=== PATIENT | female | born 1965 | race Caucasian/White ===

== ENCOUNTER 2021-01-05 09:28 | Outpatient (CLI) | payer MEDICARE, SELFPAY ==
--- NOTE | ~2021-01-05 | MM_ITS ---
EXAMINATION: MM diagnostic jose alejandro BI w ed HISTORY: Follow-up breast nodules TECHNIQUE: Additional 3-D tomosynthesis images of the breasts were performed and synthetic 2-D images were generated. CAD analysis was submitted and interpreted. COMPARISON: Comparison to multiple prior studies sequentially, with oldest reviewed study dated 03/04. BREAST PARENCHYMAL COMPOSITION: Breast composed of scattered areas of fibroglandular density FINDINGS: The breasts are stable. No new masses, calcifications or architectural distortion in either breast to suggest malignancy. Stable benign-appearing right breast nodules. IMPRESSION: 1. No mammographic evidence for malignancy in either breast. 2. Routine yearly screening mammogram and regular clinical breast examination are recommended. BI-RADS Category 2: Benign finding(s). Reviewed, dictated and finalized at location A. IMPRESSION: 1. No mammographic evidence for malignancy in either breast. 2. Routine yearly screening mammogram and regular clinical breast examination a re recommended. BI-RADS Category 2: Benign finding(s).
== END 2021-01-05 09:29 | disposition home or self-care (01) ==
PROVIDERS: PCP Physician Assistant; Visit Provider Obstetrics & Gynecology
DX: R92.8 Other abnormal and inconclusive findings on diagnostic imaging of breast (principal)
CPT/HCPCS: 77062; 77066; G0279

== ENCOUNTER 2022-03-15 08:57 | Outpatient (CLI) | payer MEDICARE, MEDICAID, SELFPAY ==
--- NOTE | ~2022-03-15 | MM_ITS ---
EXAMINATION: MM screening [facility] BI w ed HISTORY: Screening TECHNIQUE: Craniocaudal and mediolateral oblique 3-D tomosynthesis images were obtained and synthetic 2-D images were generated. CAD analysis was submitted and interpreted. COMPARISON: Comparison to multiple prior studies sequentially, with oldest reviewed study dated 03/04. BREAST PARENCHYMAL COMPOSITION: There are scattered areas of fibroglandular density. FINDINGS: There is no evidence of suspicious mass, calcification, or architectural distortion to sugg est malignancy in either breast. There has been no suspicious interval change. IMPRESSION: 1. No mammographic evidence of malignancy. 2. Recommend routine screening mammography in one year. BI-RADS Category 1: Negative Reviewed, dictated and finalized at location A.
== END 2022-03-15 08:58 | disposition home or self-care (01) ==
PROVIDERS: PCP Physician Assistant; Visit Provider Obstetrics & Gynecology
DX: Z12.31 Encounter for screening mammogram for malignant neoplasm of breast (principal)
CPT/HCPCS: 77063; 77067

== ENCOUNTER 2022-03-28 00:15 | Day surgery (SDC) | payer MEDICARE, MEDICAID, SELFPAY ==
[2022-03-13 15:25] VITALS: BMI 30.8
[2022-03-28 07:18] VITALS: BP 138/73; PULSE 84; RESP 18; TEMP 36.3; O2SAT 98; BMI 30.5
--- NOTE | 2022-03-28 07:27 | PM.HPGS ---
History of Present Illness History of Present Illness Consent: Risks, benefits, and alternatives have been discussed and questions answered. Patient agrees to proceed with procedure. Chief complaint: hx colon polyps Narrative: Sierra Calvillo is a 56 year old female Presents for screening colonoscopy. Patient states that her current weight appetite and bowel movements are normal. Patient denies abdominal pain. She has had no bleeding. Patient's previous colonoscopy 1999 showed colon polyps. Patient previously followed by Dr. Andre Markham. Review of Systems Review of Systems: review of systems noncontributory. [facility] Family History Family History Father Acute myocardial infarction, Onset Age: 61 Patient's father is Heart disease Mother Patient's mother is Asthma Cancer Grandparent Asthma Cancer Diabetes mellitus Heart disease Social History Social History Smoking packs per day: 0.25 Smoking cigarettes per day: 5.0 Years smoked: 5 Smoking pack-years: 1.25 Smoking status: Former smoker Tobacco type: cigarettes Second hand tobacco smoke exposure: No Smoking end date: 06/04/83 Alcohol intake: never Substance use: never Substance use type: does not use Living arrangements: with family Gender identity (if verbalized by the patient): Female Spiritual care concerns: No Meds Home Medications and Allergies Home Medications Medication Instructions Recorded Confirmed Type aspirin 81 mg tablet,delayed 81 mg PO DAILY 04/09/19 03/28/22 History release (Adult Aspirin Regimen) citalopram 40 mg tablet (Celexa) 40 mg PO DAILY 04/09/19 03/28/22 History metoprolol succinate 25 mg 25 mg PO DAILY 04/09/19 03/28/22 History tablet,extended release 24 hr cholecalciferol (vitamin D3) 50 50 mcg PO DAILY 06/24/20 03/28/22 History mcg (2,000 unit) capsule omeprazole 20 mg tablet,delayed 20 mg PO DAILY #90 tabs 09/15/20 03/28/22 Rx release atorvastatin 10 mg tablet 10 mg PO DAILY #90 tabs 07/29/21 03/28/22 Rx alprazolam 0.25 mg tablet 0.25 mg PO BID #60 tabs 01/24/22 03/28/22 Rx sodium,potassium,mag sulfates 17.5 See Rx Instructions PO .COMPLEX 02/01/22 03/28/22 Rx gram-3.13 gram-1.6 gram oral soln #354 mL (Suprep Bowel Prep Kit) Allergies Allergy/AdvReac Type Severity Reaction Status Date / Time amoxicillin Allergy Unknown Diarrhea Verified 03/28/22 07:22 metronidazole Allergy Unknown Nausea Verified 03/28/22 07:22 clavulanic acid AdvReac Unknown GOT C-DIFF Verified 03/28/22 07:22 Exam Narrative: Physical exam reveals patient to be alert. Vital signs stable. HEENT exam is unremarkable. Patient is anicteric. Lungs are clear to auscultation and percussion. Heart is without murmur or extra sounds. Abdomen bowel sounds are present soft nontender with no organomegaly. Digital external rectal exam is normal. Assessment and Plan Assessment and plan (1) Encounter for screening colonoscopy: Code(s): Z12.11 - Encounter for screening for malignant neoplasm of colon Status: Acute Assessment and Plan: Patient presents for screening colonoscopy. Has a prior history of colon polyps. Further recommendations will be given after endoscopy. (2) History of colon polyps: Code(s): Z86.010 - Personal history of colonic polyps Status: Acute
[2022-03-28] MEDS: LACTATED RINGERS 1,000 ML 150 ML IV CONT (07:40)
--- NOTE | 2022-03-28 07:57 | WPDANESEPPF ---
Anes - Initial Pre Proc Eval Procedure: Operation Date: 03/28/22 08:30 Proposed Procedures p Screening Colonoscopy - Andre Osorio MD Date/Time: 03/28/22 07:57 Surgeon: Andre Osorio MD Pre Op Diagnosis: hx colon polyps Patient Data Age: 56 Gender: F Height: 1.65 m Weight: 83.3 kg Last Vital Signs Temp 36.3 C L 03/28/22 07:18 Pulse 84 03/28/22 07:18 Resp 18 03/28/22 07:18 BP 138/73 03/28/22 07:18 Pulse Ox 98 03/28/22 07:18 O2 Del Method Room Air 03/28/22 07:18 Allergies Allergy/AdvReac Type Severity Reaction Status Date / Time amoxicillin Allergy Unknown Diarrhea Verified 03/28/22 07:22 metronidazole Allergy Unknown Nausea Verified 03/28/22 07:22 clavulanic acid AdvReac Unknown GOT C-DIFF Verified 03/28/22 07:22 Home Medications Medication Instructions Recorded Confirmed Type aspirin 81 mg tablet,delayed 81 mg PO DAILY 04/09/19 03/28/22 History release (Adult Aspirin Regimen) citalopram 40 mg tablet (Celexa) 40 mg PO DAILY 04/09/19 03/28/22 History metoprolol succinate 25 mg 25 mg PO DAILY 04/09/19 03/28/22 History tablet,extended release 24 hr cholecalciferol (vitamin D3) 50 50 mcg PO DAILY 06/24/20 03/28/22 History mcg (2,000 unit) capsule omeprazole 20 mg tablet,delayed 20 mg PO DAILY #90 tabs 09/15/20 03/28/22 Rx release atorvastatin 10 mg tablet 10 mg PO DAILY #90 tabs 07/29/21 03/28/22 Rx alprazolam 0.25 mg tablet 0.25 mg PO BID #60 tabs 01/24/22 03/28/22 Rx sodium,potassium,mag sulfates 17.5 See Rx Instructions PO .COMPLEX 02/01/22 03/28/22 Rx gram-3.13 gram-1.6 gram oral soln #354 mL (Suprep Bowel Prep Kit) Patient hx anesthesia problems: none Family hx anesthesia problems: none Results Review: All pre-operative results and documents have been reviewed as part of the pre-operative evaluation. [facility] Past Medical History Medical History (Updated 03/28/22 @ 07:57 by Mcaiej Wilson MD) Hyperlipidemia Obesity Surgical History Surgical History (Updated 03/28/22 @ 07:59 by Maciej Wilson MD) History of surgery on lower extremity open fracture right LE requiring vascular repair and skin graft Family History Family History Father Acute myocardial infarction, Onset Age: 61 Patient's father is Heart disease Mother Patient's mother is Asthma Cancer Grandparent Asthma Cancer Diabetes mellitus Heart disease Social History Social History Smoking packs per day: 0.25 Smoking cigarettes per day: 5.0 Years smoked: 5 Smoking pack-years: 1.25 Smoking status: Former smoker Tobacco type: cigarettes Second hand tobacco smoke exposure: No Smoking end date: 06/04/83 Alcohol intake: never Substance use: never Substance use type: does not use Living arrangements: with family Gender identity (if verbalized by the patient): Female Spiritual care concerns: No Anes - Eval Final PreProcedure Day of Procedure 03/28/22 07:57 Patient weight: obese Heart: regular rate and rhythm Lungs: clear to auscultation Airway: Mallampati scale class II Last oral intake: >/= 8 hours ASA classification: II Emergent: no Anesthetic plan: proceed Anesthesia type and monitoring: general GIVS and standard monitoring Results Review: All pre-operative results and documents have been reviewed as part of the pre-operative evaluation. Informed Consent: The patient's anesthetic plan and its attendant risks and benefits were discussed with the patient/family/POA. Questions were solicited and answers provided to the satisfaction of the patient/family/POA.
[2022-03-28 08:47] VITALS: BP 97/63; PULSE 77; RESP 17; O2SAT 94
[2022-03-28 08:57] VITALS: BP 102/69; PULSE 78; RESP 18; O2SAT 97
[2022-03-28 09:07] VITALS: BP 104/69; PULSE 69; RESP 15; O2SAT 97
== END 2022-03-28 09:10 | disposition home or self-care (01) ==
PROVIDERS: PCP Physician Assistant; Visit Provider Internal Medicine Gastroenterology
PROC: 0DJD8ZZ Inspection of Lower Intestinal Tract, Via Natural or Artificial Opening Endoscopic (ICD-10-PCS; CPT 45378; principal; 2022-03-28 08:30)
DX: Z12.11 Encounter for screening for malignant neoplasm of colon (principal); K64.8 Other hemorrhoids; Z86.010 Personal history of colon polyps; Z79.82 Long term (current) use of aspirin; E78.5 Hyperlipidemia, unspecified; E66.9 Obesity, unspecified; Z68.30 Body mass index [BMI] 30.0-30.9, adult; Z87.891 Personal history of nicotine dependence
CPT/HCPCS: G0105; J2001; J2704; J7120

== ENCOUNTER 2022-12-04 13:38 | Outpatient (CLI) | payer MEDICARE, MEDICAID, SELFPAY ==
--- NOTE | ~2022-12-04 | US_ITS ---
EXAMINATION: US soft tissue LE RT DATE: 12/04/2022 14:13 INDICATION: Palpable lump region of the right Achilles tendon TECHNIQUE: Multiple grayscale and Doppler ultrasound images of the region of concern at the posterior right ankle overlying the right Achilles tendon were obtained. COMPARISON: None FINDINGS: At the region of the palpable abnormality is a 2-3 mm hypoechoic lesion in the subcutis fat overlying the superficial margin of the normal-appearing underlying Achilles tendon. On the transverse cine im ages the lesion appears contiguous with a tiny structure extending within the lesion in a linear fash ion evident primarily by some refraction artifact suggesting either a vessel which would favor a smal l varix for the hypoechoic lesion or nerve root the lesion potentially representing a schwannoma or p eripheral nerve sheath tumor. IMPRESSION: 1. Nonspecific 2-3 mm hypoechoic lesion in the subcutaneous fat at the region of concern which could represent either a tiny venous varix or solid neoplasm such as schwannoma or neurofibroma. Reviewed, dictated and finalized at location B. IMPRESSION: 1. Nonspecific 2-3 mm hypoechoic lesion in the subcutaneous fat at the region o f concern which could represent either a tiny venous varix or solid neoplasm swift ch as schwannoma or neurofibroma.
== END 2022-12-04 13:39 | disposition home or self-care (01) ==
PROVIDERS: PCP Physician Assistant; Visit Provider Physician Assistant
DX: R22.41 Localized swelling, mass and lump, right lower limb (principal)
CPT/HCPCS: 76882

== ENCOUNTER 2023-05-14 01:59 | Day surgery (SDC) | payer MEDICARE, MEDICAID, SELFPAY ==
[2023-05-09 14:00] VITALS: BMI 32.9
--- NOTE | 2023-05-09 14:49 | PC.NURSE ---
Report to the Outpatient Waiting Room, entrance under the green pavilion located off [facility], at 0745 on 05-14-23. Planned Procedure Time: 0945. Time changes happen often and if your time is changed the preop area will call you the afternoon before. - You and your visitor will be asked to self-screen and do not enter if you have any COVID symptoms. - A mask is optional within the hospital at this time. Patients may have clear liquids (water, carbonated beverages, clear teas, apple juice) until 3 hours prior to surgery with a maximum of 20 ounces. 0645 - No food from midnight until time of surgery - Infants may have breast milk until 4 hours before surgery, formula 6 hours prior to surgery. - Children will be allowed to drink immediately following surgery. If applicable, please bring a bottle or sippy cup to assist with drinking. Juice, water, soda, and popsicles are readily available. For infants on formula, please bring formula the day of surgery. Pacifiers are allowed. Take the following medications with a SIP of water the morning of surgery: None DO NOT STOP ANY OF YOUR OTHER PRESCRIPTION MEDICATIONS PRIOR TO SURGERY ?EXCEPT THE FOLLOWING Medications to discontinue per physician: aspirin Date to take last dose: Per Dr. Wing Please no make-up, nail french, hairspray, perfume, deodorant, or body powder the day of surgery. No jewelry (including any body piercings) or valuables the day of surgery, leave them at home. Please take a shower or bath the night before, or the morning of, surgery with an antibacterial soap. Wear comfortable, loose fitting clothing. Children are encouraged to wear pajamas. - Jewelry must be removed prior to entering the operating room. Rings and piercings that are not removed may be cut off. - The hospital will not accept responsibility for valuables. - Please leave all valuables, including medications, at home the day of surgery. If you are going home after surgery, a licensed wheelchair driver must drive you home. - NO public transportation without another adult if you receive anesthesia. - We recommend that an adult stay with you for 24 hours following discharge. - We also recommend that you do not drive, make important decision, drink alcoholic beverages, or take any drugs that were not prescribed by your health care provider for at least 24 hours after your discharge time. For Pediatric surgeries, we recommend two adults accompany the child home. Follow any additional instructions given to you from your surgeon. If you or anyone in your household have experienced Covid symptoms in the past week, please notify your surgeon or the nurse liaison at the phone number below for possible testing. Telephone instructions given to Sierra Calvillo and asked if any additional questions and then verbalized understanding. Patient advised to call surgeon office or pre surgery nurse liaison [phone] if any additional questions.
--- NOTE | 2023-05-13 20:05 | PM.IMHP ---
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 Pap 12/2020 was NILM/HPV +. Pap 01/2022 was NILM/HPV + (18 positive). Colpo 03/2022 was HPV affect on biopsy. Repeat pap 03/2023 was NILM/HPV + (18). Colpo 04/2023 was ABRAHAM 1. She has a h/o ablation and denies any PMB. She is not sexually active. Review of Systems Review of Systems: All systems reviewed & are unremarkable except as noted in HPI and below (HPI) Constitutional: Constitutional: Denies chills, Denies fever(s) and Denies headache(s) Eyes: Eyes: Denies change in vision ENT: Denies dizziness and Denies headache(s) Cardiovascular: Cardiovascular: Denies chest pain and Denies rapid heart rate Respiratory: Respiratory: Denies cough Genitourinary: Genitourinary: Denies abnormal vaginal bleeding Neurologic: Denies dizziness and Denies headache(s) [facility] Past Medical History Medical History Abnormal Papanicolaou smear of cervix with positive human papilloma virus (HPV) test History of colon polyps Hyperlipidemia Obesity Surgical History Surgical History History of surgery on lower extremity open fracture right LE requiring vascular repair and skin graft Family History Family History (Updated 03/12/23 @ 14:48 by Jamila Veras MA) Father Acute myocardial infarction, Onset Age: 61 Patient's father is Heart disease Mother Patient's mother is Asthma Cancer Grandparent Asthma Cancer Diabetes mellitus Heart disease Other Anal cancer Social History Social History Smoking packs per day: 0.25 Smoking cigarettes per day: 5.0 Years smoked: 5 Smoking pack-years: 1.25 Smoking status: Never smoker Tobacco type: cigarettes Second hand tobacco smoke exposure: Yes (lives in a duplex and neighbor smokes) Smoking end date: 06/04/83 Alcohol intake: never Substance use: never Substance use type: does not use Lack of Transportation: No Lack of Food: Never True Current Housing: I Have Housing Concerned About Future Housing: No Difficulty Paying Gas/Electric Bills: No Difficulty Paying for Meds: No Currently Unemployed: No Education: High School Diploma/GED Difficulty w/ Childcare or Family Care: No Living arrangements: alone Occupation/Education: occupation Gender identity (if verbalized by the patient): Female Spiritual care concerns: No Meds Home Medications and Allergies Home Medications Medication Instructions Recorded Confirmed Type aspirin 81 mg tablet,delayed 81 mg PO DAILY 04/09/19 05/09/23 History release (Adult Aspirin Regimen) citalopram 40 mg tablet (Celexa) 40 mg PO DAILY 04/09/19 05/09/23 History metoprolol succinate 25 mg 25 mg PO DAILY 04/09/19 05/09/23 History tablet,extended release 24 hr omeprazole 20 mg tablet,delayed 20 mg PO DAILY #90 tabs 09/15/20 05/09/23 Rx release atorvastatin 10 mg tablet 10 mg PO DAILY #90 tabs 01/15/23 05/09/23 Rx alprazolam 0.25 mg tablet 0.25 mg PO HS 05/09/23 05/09/23 History Allergies Allergy/AdvReac Type Severity Reaction Status Date / Time amoxicillin AdvReac Mild Diarrhea Verified 05/09/23 13:51 metronidazole AdvReac Mild Nausea Verified 05/09/23 13:51 clavulanic acid AdvReac Unknown GOT C-DIFF Verified 05/09/23 13:51 Exam Const: General: cooperative, healthy appearing, comfortable and no acute distress Orientation/consciousness: patient oriented x3 Resp: Effort & Inspection: normal respiratory effort Auscultation: clear to auscultation bilaterally Cardio: Rate: regular rate GI: Inspection: normal to inspection and incision (5 LSC incisions ) GI Palp: Yes abdominal tenderne
[2023-05-14] MEDS: ACETAMINOPHEN 500 MG TABLET 1000 MG PO (08:20)
[2023-05-14] MEDS: LACTATED RINGERS 1,000 ML 30 ML IV CONT (08:20)
[2023-05-14 08:30] VITALS: BP 124/67; PULSE 85; RESP 16; TEMP 36.6; O2SAT 99; BMI 32.5
--- NOTE | 2023-05-14 08:59 | WPDHPUPDATE1 ---
History and Physical Update Update Date/Time: 05/14/23 08:59 History and Physical has been reviewed, including an updated exam of the patient. There are NO changes in the patient's condition. Risks, benefits, and alternatives have been discussed and questions answered. Patient agrees to proceed with LEEP, top hat, ECC.
--- NOTE | 2023-05-14 09:51 | WPDANESEPPF ---
Anes - Initial Pre Proc Eval Procedure: Operation Date: 05/14/23 09:45 Proposed Procedures p Loop Electrical Excision Procedure - Ade Wing MD Date/Time: 05/14/23 09:51 Surgeon: Ade Wing MD Pre Op Diagnosis: cervical dysplasia Patient Data Age: 58 Gender: F Height: 1.65 m Weight: 88.7 kg Last Vital Signs Temp 97.8 F 05/14/23 08:30 Pulse 85 05/14/23 08:30 Resp 16 05/14/23 08:30 BP 124/67 05/14/23 08:30 Pulse Ox 99 05/14/23 08:30 O2 Del Method Room Air 05/14/23 08:30 Allergies Allergy/AdvReac Type Severity Reaction Status Date / Time amoxicillin AdvReac Mild Diarrhea Verified 05/14/23 08:29 metronidazole AdvReac Mild Nausea Verified 05/14/23 08:29 clavulanic acid AdvReac Unknown GOT C-DIFF Verified 05/14/23 08:29 Home Medications Medication Instructions Recorded Confirmed Type aspirin 81 mg tablet,delayed 81 mg PO DAILY 04/09/19 05/14/23 History release (Adult Aspirin Regimen) citalopram 40 mg tablet (Celexa) 40 mg PO DAILY 04/09/19 05/14/23 History metoprolol succinate 25 mg 25 mg PO DAILY 04/09/19 05/14/23 History tablet,extended release 24 hr omeprazole 20 mg tablet,delayed 20 mg PO DAILY #90 tabs 09/15/20 05/14/23 Rx release atorvastatin 10 mg tablet 10 mg PO DAILY #90 tabs 01/15/23 05/14/23 Rx alprazolam 0.25 mg tablet 0.25 mg PO HS 05/09/23 05/14/23 History acetaminophen 500 mg tablet 1,000 mg PO TID #60 tabs 05/14/23 Rx ibuprofen 800 mg tablet 800 mg PO TID #30 tabs 05/14/23 Rx Patient hx anesthesia problems: post op nausea/vomiting Family hx anesthesia problems: none Results Review: All pre-operative results and documents have been reviewed as part of the pre-operative evaluation. [facility] Past Medical History Medical History Abnormal Papanicolaou smear of cervix with positive human papilloma virus (HPV) test History of colon polyps Hyperlipidemia Obesity Surgical History Surgical History History of surgery on lower extremity open fracture right LE requiring vascular repair and skin graft Family History Family History (Updated 03/12/23 @ 14:48 by Jamila Veras MA) Father Acute myocardial infarction, Onset Age: 61 Patient's father is Heart disease Mother Patient's mother is Asthma Cancer Grandparent Asthma Cancer Diabetes mellitus Heart disease Other Anal cancer Social History Social History (Reviewed 01/29/23 @ 08:20 by Maddi Celeste [facility]) Smoking packs per day: 0.25 Smoking cigarettes per day: 5.0 Years smoked: 5 Smoking pack-years: 1.25 Smoking status: Never smoker Tobacco type: cigarettes Second hand tobacco smoke exposure: Yes (lives in a duplex and neighbor smokes) Smoking end date: 06/04/83 Alcohol intake: never Substance use: never Substance use type: does not use Lack of Transportation: No Lack of Food: Never True Current Housing: I Have Housing Concerned About Future Housing: No Difficulty Paying Gas/Electric Bills: No Difficulty Paying for Meds: No Currently Unemployed: No Education: High School Diploma/GED Difficulty w/ Childcare or Family Care: No Living arrangements: alone Occupation/Education: occupation Gender identity (if verbalized by the patient): Female Spiritual care concerns: No Anes - Eval Final PreProcedure Day of Procedure 05/14/23 09:51 Patient weight: obese Heart: regular rate and rhythm Lungs: clear to auscultation Airway: Mallampati scale class II Neurological: alert and oriented Last oral intake: >/= 8 hours ASA classification: III Emergent: no Anesthetic plan: proceed Anesthesia type and monitoring: general GIVS and standard monitoring Results Review: All pre-operative results and documents have been reviewed as part of the pre-operative evaluation. Informed Consent:
[2023-05-14] MEDS: BUPIVACAINE/EPINEPHRINE 0.5% 50 ML VIAL 10 ML INFILTRATE (10:05)
--- NOTE | 2023-05-14 10:38 | W.PM.PROC2 ---
Procedure Note - Detailed Date of Procedure 05/14/23 Pre-op Diagnosis cervical dysplasia, high risk HPV 18 Post-op Diagnosis Same Procedure Performed LEEP, top hat, ECC Surgeon Ade Wing MD Anesthesia MAC and Local (10cc of 0.5% marcaine w/ epi) Findings No lugols uptake between 12-1 o'clock. Good hemostasis at end of case. Description of Procedure Sierra was taken to the operating room where she was placed under MAC sedation without complications. She was then prepped and draped in the normal fashion in the dorsal lithotomy position with her legs in low Danie stirrups. A time-out was performed and no preoperative antibiotics were indicated. A coated speculum attached to suction was then placed within the vagina, where the cervix was easily identified. The cervix was then injected with 0.5% Marcaine with epinephrine (10cc was used). Lugol?s solution was then applied to the cervix. No uptake was noted at 12-1o'clock. The LEEP was then obtained in a single swipe from the patient?s left to right. The LEEP was removed and a silk stitch was placed at 12:00 p.m. to orient the tissue for pathology. A top-hat was then obtained in the same manner. A silk stitch was then placed at 12:00 p.m. An ECC was then collected. The LEEP bed was then cauterized using the roller ball. Good hemostasis was noted. Sponge, lap, instrument, and needle counts were correct at the end of the procedure. The patient was awoken from anesthesia and taken to recovery in a stable condition with plans of same-day discharge home. Estimated Blood Loss 15 IV Fluids 700 Packing No Pathology Yes (LEEP stitch @ 12, top hat stitch at 12, ECC) Complications No immediate complications Condition Stable Disposition Same day [facility] Billing Surgery - Charge Forward: Surgery Billing
[2023-05-14 10:44] VITALS: BP 100/61; PULSE 79; RESP 14; O2SAT 97
[2023-05-14 11:14] VITALS: BP 100/61; PULSE 72; RESP 14; O2SAT 92
[2023-05-14 11:44] VITALS: BP 103/62; PULSE 68; RESP 14
--- NOTE | 2023-05-14 11:47 | SUR.PHASEII ---
DRESSED, WAITING FOR HER RIDE.
== END 2023-05-14 12:07 | disposition home or self-care (01) ==
PROVIDERS: PCP Physician Assistant; Visit Provider Obstetrics & Gynecology
PROC: 0UBC7ZZ Excision of Cervix, Via Natural or Artificial Opening (ICD-10-PCS; CPT 57522; principal; 2023-05-14 09:45)
DX: R87.612 Low grade squamous intraepithelial lesion on cytologic smear of cervix (LGSIL) (principal); N88.8 Other specified noninflammatory disorders of cervix uteri; E78.5 Hyperlipidemia, unspecified; E66.9 Obesity, unspecified; Z68.32 Body mass index [BMI] 32.0-32.9, adult; Z79.82 Long term (current) use of aspirin; Z87.891 Personal history of nicotine dependence; Z86.010 Personal history of colon polyps; Z82.49 Family history of ischemic heart disease and other diseases of the circulatory system; Z80.0 Family history of malignant neoplasm of digestive organs
CPT/HCPCS: 57522; 88305; 88307; A9270; J2405; J2704; J3010; J7120

== ENCOUNTER 2023-05-16 10:10 | Outpatient (CLI) | payer MEDICARE, MEDICAID, SELFPAY ==
--- NOTE | ~2023-05-16 | XR_ITS ---
EXAMINATION: XR finger 2nd LT min 2V INDICATION: Left second finger pain TECHNIQUE: Three views of the left second finger are obtained. COMPARISON: None available FINDINGS: There is soft tissue swelling of the second finger. 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 No fracture is identified. No radiopaque foreign body is seen. IMPRESSION: 1. Soft tissue swelling of the left second finger without radiopaque foreign body identified. Reviewed, dictated and finalized at location B. [facility] IMPRESSION: 1. Soft tissue swelling of the left second finger without radiopaque foreign laurie dy identified.
== END 2023-05-16 10:11 | disposition home or self-care (01) ==
PROVIDERS: PCP Physician Assistant; Visit Provider Physician Assistant
DX: M79.5 Residual foreign body in soft tissue (principal); R22.32 Localized swelling, mass and lump, left upper limb
CPT/HCPCS: 73140

== ENCOUNTER → 2023-06-05 14:38 | Outpatient (REF) | payer MEDICARE, SELFPAY | LOC: ANHLAB 14:38 | PROVIDERS: PCP Physician Assistant; Visit Provider Plastic Surgery | DX: L30.8 Other specified dermatitis (principal); R22.32 Localized swelling, mass and lump, left upper limb | CPT/HCPCS: 88305 ==

== ENCOUNTER 2023-08-16 14:26 | Outpatient (CLI) | payer MEDICARE, SELFPAY ==
--- NOTE | ~2023-08-16 | MM_ITS ---
EXAMINATION: MM screening jose alejandro BI w ed HISTORY: Screening mammogram TECHNIQUE: Craniocaudal and mediolateral oblique 3-D tomosynthesis images were obtained and synthetic 2-D images were generated. CAD analysis was submitted and interpreted. COMPARISON: 03/15/2022 bilateral screening mammogram 01/05/2021 bilateral diagnostic mammogram BREAST PARENCHYMAL COMPOSITION: There are scattered areas of fibroglandular density. FINDINGS: Biopsy marker on the left; history of prior benign left breast biopsy. There is no evidence of suspicious mass, calcification, or architectural distortion to suggest malignancy in either breas t. There has been no suspicious interval change. IMPRESSION: 1. No mammographic evidence of malignancy. 2. Recommend routine screening mammography in one year. BI-RADS Category 1: Negative Reviewed, dictated and finalized at location A.
== END 2023-08-16 14:27 | disposition home or self-care (01) ==
PROVIDERS: PCP Physician Assistant; Visit Provider Obstetrics & Gynecology
DX: Z12.31 Encounter for screening mammogram for malignant neoplasm of breast (principal)
CPT/HCPCS: 77063; 77067

== ENCOUNTER 2023-12-19 13:09 | Outpatient (CLI) | payer MEDICARE, SELFPAY ==
--- NOTE | ~2023-12-19 | US_ITS ---
EXAMINATION: US soft tissue abdomen DATE: 12/19/2023 13:29 INDICATION: Palpable lump along the abdominal wall the left upper quadrant TECHNIQUE: Multiple grayscale and Doppler ultrasound images of the region of extraluminal left quadra nt anterior abdominal wall were obtained. COMPARISON: None FINDINGS: There is a 2.3 x 2.3 x 0.9 cm ovoid mass in the relatively superficial subcutaneous fat with similar echogenicity and echotexture to the surrounding fat. No other abnormal masses or fluid collections id entified. IMPRESSION: 1. Nonspecific 2.3 x 2.3 x 0.9 cm subcutis mass at the region of concern with appearance most consist ent with and statistically most likely to represent a lipoma. Reviewed, dictated and finalized at location A. IMPRESSION: 1. Nonspecific 2.3 x 2.3 x 0.9 cm subcutis mass at the region of concern with a ppearance most consistent with and statistically most likely to represent a lip yomaira.
== END 2023-12-19 13:10 ==
LOC: MICIMG 13:10
PROVIDERS: PCP Internal Medicine; Visit Provider Internal Medicine
DX: R22.2 Localized swelling, mass and lump, trunk (principal)
CPT/HCPCS: 76705

== ENCOUNTER 2024-12-17 11:49 | Outpatient (CLI) | payer MEDICARE, SELFPAY ==
--- NOTE | ~2024-12-17 | MM_ITS ---
EXAMINATION: MM screening jose alejandro BI w ed HISTORY: Screening TECHNIQUE: Craniocaudal and mediolateral oblique 3-D tomosynthesis images were obtained and synthetic 2-D images were generated. CAD analysis was submitted and interpreted. COMPARISON: Comparison to multiple prior studies sequentially, with oldest reviewed study dated 06/2017. BREAST PARENCHYMAL COMPOSITION: Not dense: There are scattered areas of fibroglandular density. FINDINGS: There is no evidence of suspicious mass, calcification, or architectural distortion to sugg est malignancy in either breast. There has been no suspicious interval change. IMPRESSION: 1. No mammographic evidence of malignancy. 2. Recommend routine screening mammography in one year. BI-RADS Category 1: Negative Reviewed, dictated and finalized at location B.
== END 2024-12-17 11:50 | disposition home or self-care (01) ==
LOC: MICIMG 11:49
PROVIDERS: PCP Internal Medicine; Visit Provider Obstetrics & Gynecology
DX: Z12.31 Encounter for screening mammogram for malignant neoplasm of breast (principal)
CPT/HCPCS: 77063; 77067

== ENCOUNTER 2024-12-30 08:18 | Outpatient (CLI) | payer MEDICARE, SELFPAY ==
--- NOTE | ~2024-12-30 | CT_ITS ---
Non-contrast CT scan of the Abdomen and Pelvis Clinical indication: Abdominal pain Technique: 2.5 mm axial scans were obtained through the abdomen and pelvis without intravenous or or al contrast. Dose reduction technique was used on this scan by utilizing automated exposure control a nd iterative reconstruction technique. The dose-length product (DLP) was 722.39 mGy-cm. Findings: Images through the lung bases reveal no abnormalities. There is no evidence of renal or ureteral calculi. The kidneys and the ureters are nondilated. The liver, spleen, pancreas, gallbladder, and adrenals appear normal. There is no aortic aneurysm. There is no evidence of bowel obstruction. Images through the pelvis were performed. There is no evidence of ascites or lymphadenopathy. Urinary bladder unremarkable. No pelvic mass seen. Impression: No significant abnormality seen. Reviewed, dictated and finalized at [facility]. Impression: No significant abnormality seen.
== END 2024-12-30 08:19 | disposition home or self-care (01) ==
LOC: MICIMG 08:18
PROVIDERS: PCP Internal Medicine; Visit Provider Internal Medicine
DX: R10.9 Unspecified abdominal pain (principal)
CPT/HCPCS: 74176

== ENCOUNTER 2025-01-20 09:05 | Emergency (ER) | payer MEDICARE, SELFPAY ==
--- NOTE | ~2025-01-20 | XR_ITS ---
EXAMINATION: XR foot RT min 3V DATE: 01/20/2025 09:48 INDICATION: Fifth toe injury. TECHNIQUE: 4 images of the right foot were obtained. COMPARISON: None. FINDINGS: Displaced fracture of the distal third of the proximal phalanx of the fifth toe. Bones appear osteopenic. No other fracture identified. Soft tissue swelling about the right fifth toe. IMPRESSION: 1. Displaced fracture of the proximal phalanx of the fifth toe. Reviewed, dictated and finalized at location A.
--- NOTE | ~2025-01-20 | XR_ITS ---
EXAMINATION: XR foot RT 2V DATE: 01/20/2025 10:23 INDICATION: Postreduction fifth toe TECHNIQUE: 2 images of the right foot were obtained. COMPARISON: Right foot x-rays 01/20/2025 FINDINGS: Redemonstration of the fracture of the proximal phalanx of the fifth toe which is now in near-anatomic alignment. IMPRESSION: 1. Redemonstration of the fracture of the proximal phalanx of the right fifth toe which is now in near-anatomic alignment. Reviewed, dictated and finalized at location A. IMPRESSION: 1. Redemonstration of the fracture of the proximal phalanx of the right fifth t oe which is now in near-anatomic alignment.
[2025-01-20 09:13] VITALS: BP 110/77; PULSE 75; RESP 16; TEMP 36.9; O2SAT 98
--- NOTE | 2025-01-20 09:17 | ED_ITS ---
HPI - Extremity Injury (Lower) General Chief Complaint: Extremity Injury, Lower Stated Complaint: Injured Toe Time Seen by Provider: 01/20/25 09:16 Source: patient, RN notes reviewed and old records reviewed Mode of arrival: ambulatory Limitations: no limitations History of Present Illness HPI Narrative: 59-year-old female presents to the [facility] with pain to the right 5th toe. Patient states that she stubbed it. Not in anatomical alignment. Onset (ago): hour(s) Related Data Home Medications ?Medication ?Instructions ?Recorded ?Confirmed ?Last Taken ?Type aspirin 81 mg tablet,delayed 81 mg PO DAILY 04/09/19 1 06/04/23 05/11/23 History release (Adult Aspirin Regimen) citalopram 40 mg tablet (Celexa) 40 mg PO DAILY 04/04/24 05/13/23 History metoprolol succinate 25 mg 25 mg PO DAILY 04/09/1906/2705/13/23 History tablet,extended release 24 hr Allergies Allergy/AdvReac Type Severity Reaction Status Date / Time amoxicillin AdvReac Mild Diarrhea Verified 12/23/24 13:43 metronidazole AdvReac Mild Nausea Verified 12/23/24 13:43 clavulanic acid AdvReac Unknown GOT C-DIFF Verified 12/23/24 13:43 Review of Systems Review of Systems: All systems reviewed & are unremarkable except as noted in HPI and below Constitutional: Constitutional: Reports no additional constitutional complaints ENT: Reports system reviewed and no additional complaints, except as documented Cardiovascular: Cardiovascular: Reports no additional cardiovascular complaints, Denies chest pain and Denies dyspnea Respiratory: Respiratory: Reports no additional respiratory complaints, Denies chest congestion, Denies cough and Denies dyspnea Musculoskeletal: Musculoskeletal: Reports as per HPI Integumentary/Breasts: Skin/Breast: Reports system reviewed and no additional complaints, except as docu [facility] Past Medical History Medical History Obesity Hyperlipidemia History of colon polyps Abnormal Papanicolaou smear of cervix with positive human papilloma virus (HPV) test Surgical History Surgical History H/O LEEP (05/14/23) LEEP, top hat, ECC History of surgery on lower extremity open fracture right LE requiring vascular repair and skin graft Family History Family History Father Acute myocardial infarction, Onset Age: 61 Patient's father is Heart disease Mother Patient's mother is Asthma Cancer Grandparent Asthma Cancer Diabetes mellitus Heart disease Other Anal cancer Social History Social History Smoking packs per day: 0.25 Smoking cigarettes per day: 5.0 Years smoked: 5 Smoking pack-years: 1.25 Smoking status: Never smoker Tobacco type: cigarettes Second hand tobacco smoke exposure: Yes (lives in a duplex and neighbor smokes) Smoking end date: 06/04/83 Alcohol intake: never Substance use: never Substance use type: does not use Do You Feel Safe in your Home?: Yes Lack of Transportation: No Lack of Food: Never True Current Housing: I Have Housing Concerned About Future Housing: No Difficulty Paying Gas/Electric Bills: No Difficulty Paying for Meds: No Currently Unemployed: No Education: High School Diploma/GED Difficulty w/ Childcare or Family Care: No Living arrangements: with family Occupation/Education: occupation Gender identity (if verbalized by the patient): Female Spiritual care concerns: No Comments At the time of my signature, I reviewed and agree with the nursing past medical, surgical, social, and family history. There is no relevant family history pertinent to the patient complaint. Exam Const: General: cooperative, healthy appearing, comfortable, no acute distress, well developed, alert and well nourished Nutritional Appearance: well nourished Orientation/consciousness: patient oriented x3 Limitations: no limitations HENMT: Head: normal to inspection Eyes: General: appearance normal, both eyes and all related structures Alignment and Position: alignment normal Neck: Neck: normal visual inspection, full ROM, no lymphadenopathy and no meningeal signs Chest: Chest palpation & inspection: normal inspection of the chest Resp: Effort & Inspection: normal respiratory effort and able to speak in complete sentences Cardio: Rate: regular rate Skin: General skin exam: normal color and no rashes or lesions noted Neuro: General: patient oriented x3, gait normal, moves all extremities and no meningeal signs Cognition (Neuro): normal cognition Speech: normal speech Gait exam (Neuro): Normal gait present Extrem: General: normal to inspection, full ROM, capillary refill normal and normal gait Right lower extremity: foot Details: tenderness Location: of another digit Location: the 5th digit and other Other: 5th toe not in anatomic alignment Psych: Appearance: grossly normal and well kempt Mental Status: mental status grossly normal Speech and movement: Normal speech and movement present and Clear speech present Affect: normal affect Attitude: cooperative Course Course Emergency Course: X-ray shows dislocation. Procedure explained to patient, verbal consent obtained. Area cleaned with Betadine, digital block performed. Able to bring toe to near anatomical alignment, confirmed with x-ray Patient is lazara taped, postop shoe. Patient to follow-up with ortho Level of Care: Express Care Visit Vital Signs Vital signs: Vital Signs Temperature 98.5 F 01/20/25 09:13 Pulse Rate 75 01/20/25 09:13 Respiratory Rate 16 01/20/25 09:13 Blood Pressure 110/77 01/20/25 09:13 Pulse Oximetry 98 01/20/25 09:13 Temperature 98.5 F 01/20/25 09:13 Pulse Rate 75 01/20/25 09:13 Respiratory Rate 16 01/20/25 09:13 Blood Pressure 110/77 01/20/25 09:13 Pulse Oximetry 98 01/20/25 09:13 Reviewed MDM - Extremity Injury (Lower) MDM Narrative Medical decision making narrative: Patient sitting in exam room. Patient is nontoxic, vitals stable. Patient with fracture toe, reduced, patient to follow-up Discharge instructions reviewed with patient, as well as provided in writing per nursing staff. The instructions also include specific and strict return/GO TO THE ER as well as f/u information. All questions have been answered, and the patient deny any further questions with discharge and discharge plan. Some parts of this dictation were generated by voice recognition software and may contain typographical and/or grammatical inaccuracies. Differential Diagnosis Differential diagnosis: Likely other (Toe sprain, dislocation, fracture) Imaging Data Radiologist's impression: EXAMINATION: XR foot RT min 3V DATE: 01/20/2025 09:48 INDICATION: Fifth toe injury. TECHNIQUE: 4 images of the right foot were obtained. COMPARISON: None. FINDINGS: Displaced fracture of the distal third of the proximal phalanx of the fifth toe. Bones appear osteopenic. No other fracture identified. Soft tissue swelling about the right fifth toe. IMPRESSION: 1. Displaced fracture of the proximal phalanx of the fifth toe. EXAMINATION: XR foot RT 2V DATE: 01/20/2025 10:23 INDICATION: Postreduction fifth toe TECHNIQUE: 2 images of the right foot were obtained. COMPARISON: Right foot x-rays 01/20/2025 FINDINGS: Redemonstration of the fracture of the proximal phalanx of the fifth toe which is now in near-anatomic alignment. IMPRESSION: 1. Redemonstration of the fracture of the proximal phalanx of the right fifth toe which is now in near-anatomic alignment. Critical Care Time Critical Care Time Critical Care Time: No Discharge Plan Discharge Clinical Impression: Closed dislocation of toe, Closed fracture of toe Patient Disposition: Home Condition: Stable Instructions: Antibiotic Form, Toe Fracture (ED) Additional Instructions: Rest, ice and elevate every 2-3 hours for 15-20 minutes while awake Alternate Motrin and Tylenol as needed Follow-up either with Podiatry or ortho Patient Language: Romansh Prescriptions: No Action metoprolol succinate 25 mg tablet extended release 24 hr 25 mg PO DAILY Rx Instructions: takes at HS citalopram [Celexa] 40 mg tablet 40 mg PO DAILY Rx Instructions: takes at HS aspirin [Adult Aspirin Regimen] 81 mg tablet,delayed release (DR/EC) 81 mg PO DAILY Rx Instructions: takes at HS omeprazole 20 mg tablet,delayed release (DR/EC) 20 mg PO DAILY Qty: 90 3RF Rx Instructions: takes at HS atorvastatin 10 mg tablet 10 mg PO DAILY Qty: 90 3RF Rx Instructions: takes at HS alprazolam 0.25 mg tablet 0.125 mg PO QHS Qty: 90 0RF Follow-up/Referrals: Miller Moreno DO [Primary Care Provider, Internal Medicine] - 2 Weeks Referral Note: [facility] follow-up William Haro DPM [Physician, Podiatry] - 1 Week Rigoberto Summers MD [Physician, Orthopedics] Time of Disposition: 10:34
[2025-01-20] MEDS: LIDOCAINE 1% LOCAL INJ 2 ML AMPUL 4 ML INFILTRATE (10:00)
--- NOTE | 2025-01-20 10:25 | PC.NURSE ---
1018- post op shoe applied, and pt is ambulatory back for post reduction films, pt walking normal pace and steady gait.
== END 2025-01-20 10:38 | disposition home or self-care (01) ==
PROVIDERS: Emergency Provider Nurse Practitioner; PCP Internal Medicine
DX: S92.511A Displaced fracture of proximal phalanx of right lesser toe(s), initial encounter for closed fracture (principal); X58.XXXA Exposure to other specified factors, initial encounter; E78.5 Hyperlipidemia, unspecified; E66.9 Obesity, unspecified; Z68.30 Body mass index [BMI] 30.0-30.9, adult; Z79.82 Long term (current) use of aspirin
CPT/HCPCS: 28515; 73620; 73630; 99214; G0463; J2003